=== PATIENT | female | born 1960 | race Caucasian/White ===

== ENCOUNTER → 2016-04-06 | Day surgery (SDC) | payer OTHER | END | disposition home or self-care (01) | LOC: FRADUS-SUR 14:05 | PROVIDERS: ATTEND Surgery | PROC: 0HBT3ZX Excision of Right Breast, Percutaneous Approach, Diagnostic (ICD-10-PCS; principal; 2016-04-06) | DX: C50.911 Malignant neoplasm of unspecified site of right female breast (principal) | CPT/HCPCS: 19083; 87899; 88305-TC; 88341-TC; 88342-TC; A4648; G0206-TC ==

== ENCOUNTER → 2016-04-20 | Day surgery (SDC) | payer OTHER | END | disposition home or self-care (01) | LOC: FRADUS-SUR 08:51 | PROVIDERS: ATTEND Surgery | PROC: 0HBT3ZX Excision of Right Breast, Percutaneous Approach, Diagnostic (ICD-10-PCS; principal; 2016-04-20) | DX: N63 Unspecified lump in breast (principal); C50.111 Malignant neoplasm of central portion of right female breast; D05.11 Intraductal carcinoma in situ of right breast | CPT/HCPCS: 19085; 88305-TC; 88342-TC; A4648; C1887; G0206-TC ==

== ENCOUNTER 2016-07-03 08:01 | Day surgery (SDC) | payer OTHER ==
[2016-06-28 11:47] VITALS: BMI 30.8
--- NOTE | 2016-07-02 09:10 | HP ---
Admitting History and Physical - Primary Care Physician PCP: Camila Lowery - Admission Chief Complaint: Right breast cancer needs neoadjuvant chemotherapy History of Present Illness: 56 year old postmenapausal female with mammogram 03/29/2016 showinf developing right breast skin thickening. Bilateral us showed abnormal hypoechoic areas right breast birad 4. US core bx 04/06/2016 right breast 10:00 showed invasive ductal carcinoma and DCIS. MRI breast showed 2 additional areas of enhancement right breast. RIGHT MRI CORE BX 9:00 04/2016 showed invasive ductal carcinoma and DCIS. She will need neoadjuvant chemotherapy. History Source: Patient Limitations to Obtaining History: No Limitations - Past Medical History Endocrine: Yes: Hypothyroidism - Past Surgical History Past Surgical History: Yes: , Tonsillectomy Additional Past Surgical History: BLT and left knee surgery myomectomy - Smoking History Smoking history: Never smoked Have you smoked in the past 12 months: No - Alcohol/Substance Use Hx Alcohol Use: No Home Medications - Allergies Allergies/Adverse Reactions: Allergies Allergy/AdvReac Type Severity Reaction Status Date / Time No Known Allergies Allergy Verified 06/28/16 11:40 - Home Medications Home Medications: Ambulatory Orders Levothyroxine Sodium [Synthroid] 200 mcg PO DAILY 06/28/16 Multivit-Min/Iron/Folic/Lutein [Centrum Silver Women Tablet] 1 each PO DAILY Family Disease History - Family Disease History Family Disease History: CA: Mother (pancreatic ca 75) Physical Examination Constitutional: Yes: Well Nourished Breast(s): Yes: Other (Left breast negative right breast erythema around right nipple and swollen with post bx changes. No adenopathy bilaterally) Problem List - Problems (1) Breast cancer, right breast Code(s): C50.911 - MALIGNANT NEOPLASM OF UNSP SITE OF RIGHT FEMALE BREAST Qualifiers: Breast location: central portion of breast Patient sex: female Qualified Code(s): C50.111 - Malignant neoplasm of central portion of right female breast Assessment/Plan Left port insertion for neoadjuvant chemotherapy
[2016-07-03] MEDS ORDERED: DEXTROSE 5%-0.45% SALINE 1,000 ML IV SCH (09:45)
[2016-07-03] MEDS ORDERED: ONDANSETRON 4 MG/2 ML VIAL IVPB PRN (09:55)
[2016-07-03] MEDS ORDERED: KETOROLAC TROMETHAMINE 30 MG/1 ML VIAL IVPUSH PRN (09:55)
[2016-07-03] MEDS ORDERED: HEPARIN NA (PORCINE) 5,000 UNITS/ML 1ML VIAL ONE (10:37)
[2016-07-03] MEDS ORDERED: MIDAZOLAM HCL 2 MG/2 ML SINGLE DOSE VIAL ONE (10:38)
[2016-07-03] MEDS ORDERED: PROPOFOL 20 ML ONE ×3 (10:43)
[2016-07-03] MEDS ORDERED: ONDANSETRON 4 MG/2 ML VIAL ONE (11:43)
[2016-07-03] MEDS ORDERED: LACTATED RINGERS SOLUTION 1,000 ML IV SCH (12:15)
[2016-07-03 12:33] VITALS: TEMP 98.3
[2016-07-03 13:54] VITALS: BP 120/80; PULSE 76
--- NOTE | 2016-07-09 23:46 | OP ---
DATE OF OPERATION: 07/03/2016 PREOPERATIVE DIAGNOSIS: Right breast cancer. POSTOPERATIVE DIAGNOSIS: Right breast cancer. PROCEDURE: Left Lifeport incision. ATTENDING SURGEON: Camila Lowery M.D. ASSISTING: ESTIMATED BLOOD LOSS: Minimal. COMPLICATIONS: None. PROCEDURE: Patient was made aware of the risks and benefits of the procedure and consented. She was placed in a supine position. After IV sedation was administered, the operative site was prepped and draped in the usual sterile fashion. Patient was then placed in Trendelenburg position. 1% lidocaine was used for local anesthesia. Using a Seldinger technique, the subclavian vein was easily identified and the wire was placed in a good position by intraoperative fluoroscopy. Incisions were made over the wire puncture site and inferolateral to that in which electrocautery was used to form an inferior pocket. The catheter was tunneled from the larger lower incision to the puncture site incision and fashioned to the proper length. Proximal end was attached to the port head which was placed underneath the pocket. A dilator and introducer were placed over the wire under fluoroscopic control. The dilator and wire were moved, and the catheter was placed into good position, with stripping away of the introducer. heparinized saline of 1 mL was injected into the port. The port was then sutured to the deep tissues with 2-0 Prolene. Skin was then closed with deep 2-0 Vicryl followed by a running stitch of 4-0 Monocryl. Steri-Strips and a sterile bandage were applied. The patient did well postoperatively, was taken to recovery room where chest x-ray revealed good placement of the catheter without signs of complication. CAMILA LOWERY M.D. [id number]
== END 2016-07-03 13:35 | disposition home or self-care (01) ==
LOC: FASU 08:01
PROVIDERS: ATTEND Surgery Surgical Oncology
PROC: 02HV33Z Insertion of Infusion Device into Superior Vena Cava, Percutaneous Approach (ICD-10-PCS; principal; 2016-07-03 11:11)
DX: C50.911 Malignant neoplasm of unspecified site of right female breast (principal)
CPT/HCPCS: 71010-TC; 94760; J1644

== ENCOUNTER → 2016-11-20 | Day surgery (SDC) | payer OTHER | END | disposition home or self-care (01) | LOC: JRADIR 10:51 | PROVIDERS: ATTEND Physician Assistant | PROC: B518YZA Fluoroscopy of Superior Vena Cava using Other Contrast, Guidance (ICD-10-PCS; principal; 2016-11-20) | DX: T82.514A Breakdown (mechanical) of infusion catheter, initial encounter (principal); C50.919 Malignant neoplasm of unspecified site of unspecified female breast | CPT/HCPCS: 36598 ==

== ENCOUNTER 2017-07-16 06:34 | Day surgery (SDC) | payer OTHER ==
[2017-07-08 16:26] VITALS: BMI 32.5
--- NOTE | 2017-07-10 14:02 | HP ---
Admitting History and Physical - Primary Care Physician PCP: Hilda Pedraza - Admission Chief Complaint: right breast cancer S/P chemotherapy History of Present Illness: 57 year old postmenapausal female S/P right nipple sparing mastectomy SNBX with implant reconstruction 12/2016 after neoadjuvant chemotherapy for a 3.5x3.1 cm invasive ductal ductal carcinoma. After chemotherapy there was no residual invasive cancer just a few foci of low to intermediate DCIS 0/4 nodes. She is here for port removal. History Source: Patient Limitations to Obtaining History: No Limitations - Past Medical History Endocrine: Yes: Hypothyroidism - Past Surgical History Past Surgical History: Yes: , Mastectomy (Right nipple sparing mastectomy with implant reconstruction S/O neoadjuvant chemotherapy invasive ductl carcinoma ER/[place] neg HER2 positive), Tonsillectomy Additional Past Surgical History: myomectom BTL - Smoking History Smoking history: Never smoked Have you smoked in the past 12 months: No - Alcohol/Substance Use Hx Alcohol Use: No Home Medications - Allergies Allergies/Adverse Reactions: Allergies Allergy/AdvReac Type Severity Reaction Status Date / Time No Known Allergies Allergy Verified 07/08/17 16:21 - Home Medications Home Medications: Ambulatory Orders Multivit-Min/Iron/Folic/Lutein [Centrum Silver Women Tablet] 1 each PO DAILY Calcium Carb, Citrate/Vit D3 [Calcium + D3 ER Tablet] 1 each PO DAILY 07/08/17 Levothyroxine [Synthroid -] 125 mcg PO DAILY 07/08/17 Family Disease History - Family Disease History Family Disease History: CA: Mother (pancreatic ca 75) Physical Examination Constitutional: Yes: Well Nourished Breast(s): Yes: Other (Right chest wall and axilla healed incisions no signs of recurrence or infection. Left chest wall port in place no S/S infection) Problem List - Problems (1) Breast cancer, right breast Code(s): C50.911 - MALIGNANT NEOPLASM OF UNSP SITE OF RIGHT FEMALE BREAST Qualifiers: Breast location: central portion of breast Patient sex: female Qualified Code(s): C50.111 - Malignant neoplasm of central portion of right female breast Assessment/Plan life port removal
[2017-07-16 07:10] VITALS: TEMP 98.2
[2017-07-16] MEDS ORDERED: LIDOCAINE HCL 1%, 10 MG/ML (20ML VIAL) ONE (07:15)
[2017-07-16] MEDS ORDERED: MIDAZOLAM HCL 2 MG/2 ML SINGLE DOSE VIAL ONE (07:35)
[2017-07-16] MEDS ORDERED: SUCCINYLCHOLINE CHLORIDE 200 MG/10 ML VIAL ONE (07:35)
[2017-07-16] MEDS ORDERED: PROPOFOL 20 ML ONE ×2 (07:35)
[2017-07-16] MEDS ORDERED: KETOROLAC TROMETHAMINE 30 MG/1 ML VIAL IVPUSH PRN (08:33)
[2017-07-16] MEDS ORDERED: ONDANSETRON 4 MG/2 ML VIAL IVPUSH PRN (08:33)
[2017-07-16] MEDS ORDERED: LIDOCAINE HCL 1%, 10 MG/ML (50 mL VIAL) IJ ONE ×2 (08:39)
[2017-07-16] MEDS ORDERED: DEXTROSE 5%-0.45% SALINE 1,000 ML IV SCH (08:45)
[2017-07-16] MEDS ORDERED: BUPIVACAINE HCL/PF 2.5 MG/ML - 30 ML VIAL IJ ONE (08:54)
[2017-07-16] MEDS ORDERED: BUPIVACAINE HCL/PF 0.25% (2.5MG/ML) 10 ML VIAL IJ ONE ×2 (08:55)
[2017-07-16 09:50] VITALS: BP 118/78; PULSE 63
--- NOTE | 2017-07-18 17:02 | PATH ---
Surgical Pathology Report Patient Name: JOCELYNN LUCIA Med. Rec. #: [id number] /Age/Gender: 1960 (Age: 57) / F Account: [id number] Location: [facility] Taken: 07/16/2017 Received: 07/16/2017 Reported: 07/18/2017 Physicians: Hilda Pedraza M.D. Specimen(s) Received LIFE PORT Clinical History Right breast cancer Final Diagnosis LIFE PORT, REMOVAL: [employer] ASSISTANT, PORT. MACROSCOPIC DIAGNOSIS. Electronically Signed Roxana Aaron M.D. Gross Description Received fresh labeled "life port," is a 2.7 x 2.5 x 1.5 cm purple, triangular device, consistent with a port. The port displays an 18 cm in length portion of white tubing extending from one aspect. No soft tissue is present. No sections are submitted, gross only. /07/17/2017 saudi07/17/2017
--- NOTE | 2017-07-18 17:10 | OP ---
DATE OF OPERATION: 07/16/2017 PREOPERATIVE DIAGNOSIS: Right breast cancer. POSTOPERATIVE DIAGNOSIS: Right breast cancer. PROCEDURE: Removal of LifePort. SURGEON: Hilda Pedraza MD CENTRIFUGAL WAX MOLDER: SADIA Martinez ANESTHESIA: MAC. ANESTHESIOLOGIST: Reinier Moore MD SPECIMEN: LifePort. ESTIMATED BLOOD LOSS: Minimal. DRAINS: None. INDICATION FOR PROCEDURE: The patient is a 57-year-old woman who is status post right mastectomy for invasive cancer. She has completed all chemotherapy treatment and is ready for removal of the LifePort. The procedure and risks were discussed with the patient prior to surgery. DESCRIPTION OF PROCEDURE: The patient was identified in the holding area. Informed consent was obtained. The left chest was identified with a marker. She was taken to the operating room and placed on the operating table in the supine position. She was sedated. The left chest was prepped and draped in the usual fashion. The incision was opened with a scalpel. The incision was deepened with electrocautery until the port was exposed. The port was then bluntly mobilized. A couple of sutures holding the port to the chest wall were cut with scissors. The port was removed in its entirety. It was sent to Pathology. The venotomy was closed with a 3-0 Vicryl tie. The wound was irrigated and inspected for hemostasis. The deep tissue was closed with interrupted sutures of 3-0 Vicryl. The skin was infiltrated with 0.5% Marcaine. The dermis was closed with interrupted sutures of 3-0 Vicryl. The skin was closed with a running subcuticular closure of 4-0 Biosyn. The wound was cleaned and covered with Dermabond and a Steri-Strip. A gauze dressing was applied. The patient was awakened and taken to the PACU in satisfactory condition. At the end of the procedure, all sponge, lap, and instrument counts were correct. Demetrius [id number] MTDD
== END 2017-07-16 10:00 | disposition home or self-care (01) ==
LOC: FASU 06:34
PROVIDERS: ATTEND Surgery
PROC: 0JPT0WZ Removal of Totally Implantable Vascular Access Device from Trunk Subcutaneous Tissue and Fascia, Open Approach (ICD-10-PCS; principal; 2017-07-16 08:00)
DX: Z45.2 Encounter for adjustment and management of vascular access device (principal); C50.911 Malignant neoplasm of unspecified site of right female breast; Z92.21 Personal history of antineoplastic chemotherapy; Z90.11 Acquired absence of right breast and nipple
CPT/HCPCS: 88300-TC

== ENCOUNTER 2024-09-10 15:47 | Observation (INO) | payer BC, OTHER ==
[2024-09-10 17:12] LABS: MCHC 33.7 g/dl (32.2-35.5); MEAN CELL VOLUME 87.8 fl (79.4-94.8); MEAN PLT VOLUME 10.5 fl (9.4-12.3); RDW 12.1 % (12.4-16.4)
[2024-09-10] MEDS: SODIUM CHLORIDE 0.9% 500 ML INFUS.BAG IV ONE (18:11)
[2024-09-10 18:16] LABS: CO2 25.0 mmol/L (21-32); GLUCOSE,RANDOM 131.0 mg/dL (74-106)
[2024-09-10 18:20] LABS: CREATININE 0.9 mg/dL (0.55-1.3); SGOT/AST 22.0 U/L (15-37)
[2024-09-10 18:21] LABS: TOT PROT 7.5 g/dl (6.4-8.2)
[2024-09-10 18:23] LABS: ALK PHOS 76.0 U/L (45-117)
[2024-09-10 18:31] LABS: SGPT/ALT 25.0 U/L (13-61)
[2024-09-10 18:32] LABS: HCV DIAGNOSTIC IN-HOUSE W/RFLX NON-REACTIVE (NONREACTIVE); HIV INTERPRETATION NEGATIVE (NEGATIVE)
[2024-09-11 01:02] VITALS: BMI 35.4
[2024-09-11 07:34] LABS: ABSOLUTE IMMATURE GRANULOCYTES 0.03 x10^3/uL (0.0-0.031); BASOPHILS # 0.04 x10^3/uL (0.01-0.08); EOSINOPHIL % 2.0 % (0.7-5.8); EOSINOPHILS # 0.18 x10^3/uL (0.04-0.36); MCHC 33.0 g/dl (32.2-35.5); MEAN CELL VOLUME 89.5 fl (79.4-94.8); MEAN PLT VOLUME 10.6 fl (9.4-12.3); MONOCYTE # 0.63 x10^3/uL (0.24-0.86); MONOCYTE % 7.0 % (4.7-12.5); RDW 12.4 % (12.4-16.4)
[2024-09-11 09:37] LABS: GLUCOSE,RANDOM 102.0 mg/dL (74-106)
[2024-09-11 09:41] LABS: CREATININE 0.9 mg/dL (0.55-1.3)
[2024-09-11 10:19] LABS: LDL CHOLESTEROL (ONLY SJRH) 90.0 mg/dL (5-100)
[2024-09-11 10:24] VITALS: RESP 22
[2024-09-11 10:24] LABS: CO2 23.0 mmol/L (21-32)
[2024-09-11] MEDS: LEVOTHYROXINE NA 112 MCG TABLET (FP) PO SCH (12:00)
[2024-09-11] MEDS: SODIUM CHLORIDE 1,000 ML IV SCH (13:48)
[2024-09-11] MEDS: ENOXAPARIN NA (PORCINE) 40 MG/0.4 ML DISP.SYRIN SQ SCH (13:49)
[2024-09-11 18:04] LABS: EPI CELLS 2 /uL (0-25.1); HYALINE CASTS 0 /uL (0-3.1); URINE APPEARANCE CLEAR; URINE BACTERIA >9,000 /uL (0-1359); URINE BILIRUBIN NEGATIVE (NEGATIVE); URINE COLOR YELLOW; URINE GLUCOSE (UA) NEGATIVE (NEGATIVE); URINE KETONE NEGATIVE (NEGATIVE); URINE LEUK ESTERASE TRACE (NEGATIVE); URINE NITRITE POSITIVE (NEGATIVE); URINE PROTEIN NEGATIVE (NEGATIVE); URINE RBC 154 /uL (0-23.9); URINE UROBILINOGEN 0.2 mg/dL (0.2-1.0)
[2024-09-11 19:36] VITALS: BP 112/68; PULSE 56; TEMP 98.2
== END 2024-09-11 20:19 | disposition home or self-care (01) ==
LOC: JER 15:47 → JERBED 18:59 → J4W 09-11
PROVIDERS: ADMIT Internal Medicine; ATTEND Student in an Organized Health Care Education/Training Program
PROC: 3E0337Z Introduction of Electrolytic and Water Balance Substance into Peripheral Vein, Percutaneous Approach (ICD-10-PCS; principal; 2024-09-10)
DX: R55 Syncope and collapse (principal); E03.9 Hypothyroidism, unspecified; Z85.3 Personal history of malignant neoplasm of breast; Z90.10 Acquired absence of unspecified breast and nipple; Z96.89 Presence of other specified functional implants
CPT/HCPCS: 36415; 70450-TC; 71046-TC-FY; 80048; 80053; 80061; 81003; 83036; 83735; 84443; 84484; 85025; 85027; 86803; 87389; 87637-QW; 93005; 93010; 93880-TC; 99285-25; G0378